=== PATIENT | female | born 1940 | race Caucasian/White ===

== ENCOUNTER 2017-12-22 11:40 | Inpatient (IN) ==
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
[2017-12-22 12:47] LABS: Basophils % 0.3 %; Eosinophils # 0.4 K/mcL (0.0-0.6); Eosinophils % 5.6 %; Hematocrit 36.2 % (35.3-44.9); Hemoglobin 12.2 g/dL (11.5-15.4); Immature Granulocytes % 0.9 % (0-4); Lymphocytes # 0.9 K/mcL (0.6-4.6); Lymphocytes % 11.2 %; Mean Corpuscular HGB Conc 33.7 g/dL (31.6-35.5); Mean Corpuscular Hemoglobin 30.5 pg (28.0-33.3); Mean Corpuscular Volume 90.5 fL (83.0-100.0); Mean Platelet Volume 8.7 fL (9.4-12.4); Monocytes # 0.5 K/mcL (0.0-1.3); Monocytes % 6.3 %; Neutrophils # 5.9 K/mcL (1.6-8.9); Nucleated Red Blood Cells 0.3 /100 WBC (0); Platelet Count 239 K/mcL (140-400); Red Cell Distribution Width 13.1 % (11.5-14.5); Segmented Neutrophils % 75.7 %
[2017-12-22 13:17] LABS: Alanine Aminotransferase 21 Units/L (7-52); Albumin 3.6 g/dL (3.5-5.7); Alkaline Phosphatase 46 Units/L (34-104); Aspartate Amino Transferase 26 Units/L (13-39); BUN/Creatinine Ratio 11 (6-26); Bilirubin,Direct 0.2 mg/dL (0.0-0.2); Bilirubin,Indirect 0.8 mg/dL (0.0-1.2); Blood Urea Nitrogen 9 mg/dL (8-23); Carbon Dioxide 22 mEq/L (23-29); Chloride 100 mEq/L (98-107); Globulin 3.5 g/dL (2.4-3.5); Glucose 127 mg/dL (70-105); Osmolality,Calculated 276 (280-300); Potassium 3.3 mEq/L (3.5-5.1); Sodium 133 mEq/L (136-145); Total Protein 7.1 g/dL (6.4-8.9); Troponin I < 0.03 ng/mL (< 0.04); eGFR For African Americans > 60 (> 60); eGFR For Non-African Americans > 60 (> 60)
[2017-12-22 13:30] LABS: Thyroid Stimulating Hormone 2.969 mcIU/mL (0.340-5.600)
[2017-12-22] MEDS ORDERED: Ipratropium/Albuterol Neb 3 ML IH ONE (15:46)
[2017-12-22] MEDS ORDERED: Ketorolac 15 MG/ML VIAL IVP ONE (17:53)
[2017-12-22] MEDS ORDERED: Furosemide 20 MG/2 ML VIAL IVP ONE (18:09)
[2017-12-22] MEDS ORDERED: Naloxone 0.4 MG/ML INJ IVP PRN (20:59)
--- NOTE | 2017-12-22 21:09 | Internal Med History&Physical ---
Date of Encounter: 12/22/17 Time of Encounter: 21:05 Assessment and Plan (1) Hospital-acquired pneumonia Current visit: Yes Status: Acute 77/F This is a very active and healthy female till August 2017. Since then she started gradually worsening in terms of sinus pressure, cough, congestive symptoms. Patient was evaluated by customer sales specialist/ENT. She was given multiple dosages of inhaled and oral steroids. She was complaining of tremors/agitation/restlessness after second week of her oral steroids. On examination, pertinent positives/negatives: Patient has a hoarseness of voice Likely essential tremors but goes mostly in favor of dystonic too Examination of oral cavity is benign. Unable to examine the back of the tounge for possible candidiasis Air entry bilaterally equal/polyphonic wheezes heard. Tremors restricted to upper part of the body then lower. Assessment: Possibly steroid induced tremors/agitation. Neurology opinion will be beneficial. Need ENT evaluation for hoarseness of voice. At this point I will not continue antibiotics he will though it was mentioned to him that edema on CTA. WBC normal ( in spite of steroids intake), no fever, no hypotension (Patient already received vancomycin/Zosyn in the emergency room) If needed team can start antibiotics tomorrow. Plan: Will admit as inpatient. Neurology/ENT opinion tomorrow if team agrees. I have examined this patient [id number] Patient's daughter is at bedside. Plan of care explained to the family. Verbalized understanding. (2) Hypertension Current visit: Yes Status: Acute Patient's blood pressure is within acceptable range. We will resume home medication. We will closely monitor blood pressure Qualifiers: Hypertension type: essential hypertension Qualified Code(s): I10 - Essential (primary) hypertension (3) Hypercholesterolemia Current visit: Yes Status: Acute We will get lipid panel tomorrow. Will continue home medication. (4) DVT prophylaxis Current visit: Yes Status: Acute SCD Medical decision making: This patient has a moderate to severe risk of worsening in spite of being on appropriate medication due to the underlying chronic comorbid conditions. Internal Medicine - H&P: HPI Chief complaint: Shortness of breath and Tremors. Admitted From: Emergency Dept Plans for Post Hospital Care: Home History of present illness: 77/F PCP: Jessica Stearns test specialist: Dr. Young ENT: Dr Mccarty from [place] ( Has appointment for laryngoscopy on 01/04/2018) Brief HPI: HTN, Hyperlipidemia, Previous Subdural hematoma, HPI: Patient was healthy and up to date with her health care maintenance the August 2017. In August 2017, she started with congestive symptoms, occasional headaches, and sinus related issues. She was referred to allergy and general road production manager by her PCP. She was started on steroid preparations which did not help her in terms of relieving her symptoms. She was referred to ENT specialist where she received tapering dosage of steroid. She could not tolerate this tapering doses of steroids more than 2 weeks and reason for intolerance was tremors, anxiety, agitation and restlessness. Patient was evaluated again by primary care doctor and suggested discontinuing the medication. In last 48 hours patient has clinically deteriorated in terms of worsening headache, tremors, agitation and more and more restlessness. Patient was evaluated by primary care physician this morning and recommended evaluation by emergency department for further management/investigations. Workup in the emergency department: Patient was evaluated in the emergency department. Basic labs were drawn. There is no leukocytosis. Mild hypokalemia was observed. CT head: Negative for any acute process. CTA chest: Suggestive of possibility of a interstitial pneumonia. Patient was started on vancomycin/Zosyn. Reason for admission: Hospital-acquired pneumonia (low probability) Family history: Noncontributory Past Med Surg Social Fam HX - Past Medical History Medical history: asthma, GERD, hyperlipidemia, hypertension Psychiatric history: anxiety, depression - Past Surgical History Surgical History: hysterectomy, sinus surgery - Social History Smoking Status: Never smoker Smokeless Tobacco Status: No Alcohol use: none Drug use: none - Family History Mother Living Status: Hx Family Cardiac Disorders: Yes Father Living Status: Hx Family Cardiac Disorders: Yes Internal Medicine - H&P: Meds Albuterol Sulfate [Albuterol Inhaler] 2 puff IH Q4H PRN 03/21/16 [History] Atorvastatin [Lipitor] 40 mg PO HS 03/21/16 [History] Calcium Carbonate [Calcium] 600 mg PO BID 03/21/16 [History] Gluc Sidhu/Chondro Sidhu A/Vit C/Mn [Glucosamine Chondroitin Tab] 1 each PO DAILY [History] Multivitamin [One Daily Essential] 1 each PO DAILY 03/21/16 [History] Omeprazole [PriLOSEC] 20 mg PO DAILY 03/21/16 [History] Sertraline [Zoloft] 50 mg PO DAILY 03/21/16 [History] Spironolactone [Aldactone] 25 mg PO QAM 03/21/16 [History] amLODIPine [Norvasc] 5 mg PO QPM 03/21/16 [History] Fluticasone Propionate Nasal [Flonase] 50 mcg NS BID 12/22/17 [History] Fluticasone Propionate [Flovent Hfa] 1 puff IH BID PRN 12/22/17 [History] Fluticasone/Salmeterol [Advair Hfa 115-21 Mcg Inhaler] 2 puff IH BID 12/22/17 [ History] Montelukast [Singulair] 10 mg PO DAILY 12/22/17 [History] Mupirocin Calcium [Bactroban Nasal] 1 appl TP BID PRN 12/22/17 [History] clonazePAM [Klonopin] 0.25 - 0.5 mg PO BID PRN 12/22/17 [History] 3 Allergy/AdvReac Type Severity Reaction Status Date / Time ciprofloxacin [From Cipro] Allergy Rash Verified 12/22/17 11:48 codeine Allergy Rash Verified 12/22/17 11:48 doxycycline Allergy Rash Verified 12/22/17 11:48 hydrocodone Allergy Hives Verified 12/22/17 11:48 Quinolones Allergy Rash Verified 12/22/17 11:48 Tetracycline Allergy Rash Verified 12/22/17 11:48 conjugated estrogens Allergy Hives Uncoded 03/21/16 18:22 All Systems PM: A 10-system review of systems was performed and is negative for pertinent findings except as documented above in the HPI. - Constitutional Constitutional: no chills, no fever(s), no night sweats - EENT Eyes: no change in vision, no discharge, no pain, no photophobia Ears: no ear discharge, no ear pain, no tinnitus Nose, mouth and throat: no dysphagia, no nasal discharge, no neck pain, no sore throat - Cardiovascular Cardiovascular ROS IM: no chest pain, no diaphoresis, no dyspnea, no lightheadedness, no palpitations, no syncope - Respiratory Respiratory: cough, dyspnea, wheezing, no excessive phlegm production - Gastrointestinal Gastrointestinal: no abdominal pain, no diarrhea, no hematemesis, no hematochezia, no melena, no nausea, no vomiting - Genitourinary Genitourinary: no change in urinary stream, no dysuria, no flank pain, no hematuria - Musculoskeletal Musculoskeletal ROS IM: no numbness, no tingling - Integumentary Integumentary IM: no rash, no unusual bruising - Neurological Neurological ROS: no confusion, no convulsions, no focal weakness, no numbness, no tingling, no tremor(s) - Hematologic/Lymphatic Hematologic/Lymphatic: no easy bruising - Constitutional Vitals: Temp Pulse Resp BP Pulse Ox 97.8 F 97 18 150/97 91 12/22/17 11:44 12/22/17 18:30 12/22/17 18:30 12/22/17 18:30 12/22/17 18:30 General appearance: Present: A&O X 3, pleasant, no acute distress, answers questions appropriately - Head Head exam: Present: atraumatic, normocephalic - Eye Eye exam: Present: PERRL, conjuntiva pink, sclera anicteric Pupils: Present: PERRL - Neck Neck exam general surgery: Present: supple, trachea midline. Absent: lymphadenopathy - Respiratory Respiratory exam: Present: accessory muscle use, CTAB, wheezes. Absent: rales, rhonchi - Cardiovascular Cardiovascular exam: Present: RRR, +S1, +S2. Absent: diastolic murmur, gallop, rubs, systolic murmur - GI/Abdominal GI/Abdominal exam: Present: normal bowel sounds, soft, no peritoneal signs. Absent: distended, tenderness - Extremities Exam Extremities exam: Present: warm, radial pulses palpable and symmetrical. Absent : calf tenderness, cyanotic, pedal edema - Neurological Exam Neurological exam: Present: CN II-XII intact, oriented X3, no focal deficits. Absent: pronater drift, facial droop, speech deficit Additional comments: Patient is very anxious, she has a ongoing tremors. These are not intentional tremors. These are more likely essential tremor - Skin Skin exam: Present: dry, intact Internal Med - H&P Results - Labs CBC & Chem 7: 12/22/17 12:05 12/22/17 12:05
--- NOTE | 2017-12-22 21:20 | Electrocardiograph Report ---
[facility] Test Date: 2017-12-22 Pat Name: Lewis Bonner Department: 103 Room: 3B46 Gender: F Vascular Technologist Sonographer: BRANDIE : 1940 Requested By: Jamal Arguelles Order Number: [id number] Reading MD: Joseph Brown DO Measurements Intervals [place] Rate: 107 P: 73 TX: 154 QRS: 46 QRSD: 91 T: 44 QT: 333 QTc: 396 Interpretive Statements SINUS TACHYCARDIA POSSIBLE RIGHT ATRIAL ENLARGEMENT [0.25mV P WAVE] POSSIBLE LEFT ATRIAL ENLARGEMENT [-0.1mV P WAVE IN V1/V2] ABNORMAL RHYTHM ECG Electronically Signed On 12-22-2017 21:18:53 EST by Joseph Brown DO
[2017-12-22] MEDS: Acetaminophen 325 MG TABLET PO PRN (22:00)
[2017-12-23 05:05] LABS: Basophils % 0.1 %; Eosinophils # 0.6 K/mcL (0.0-0.6); Eosinophils % 8.4 %; Hemoglobin 11.2 g/dL (11.5-15.4); Immature Granulocytes % 0.4 % (0-4); Lymphocytes # 0.8 K/mcL (0.6-4.6); Lymphocytes % 12.4 %; Mean Corpuscular HGB Conc 33.9 g/dL (31.6-35.5); Mean Corpuscular Hemoglobin 30.6 pg (28.0-33.3); Mean Corpuscular Volume 90.2 fL (83.0-100.0); Mean Platelet Volume 8.8 fL (9.4-12.4); Monocytes # 0.4 K/mcL (0.0-1.3); Monocytes % 6.4 %; Neutrophils # 4.8 K/mcL (1.6-8.9); Platelet Count 248 K/mcL (140-400); Red Blood Count 3.66 M/mcL (3.82-4.97); Red Cell Distribution Width 13.2 % (11.5-14.5); Segmented Neutrophils % 72.3 %
[2017-12-23 05:22] LABS: Alanine Aminotransferase 19 Units/L (7-52); Albumin 3.3 g/dL (3.5-5.7); Alkaline Phosphatase 42 Units/L (34-104); Aspartate Amino Transferase 25 Units/L (13-39); BUN/Creatinine Ratio 13 (6-26); Bilirubin,Total 0.7 mg/dL (0.3-1.0); Blood Urea Nitrogen 11 mg/dL (8-23); Calcium 8.8 mg/dL (8.6-10.3); Carbon Dioxide 23 mEq/L (23-29); Chloride 101 mEq/L (98-107); Chol/HDL Ratio 3.8 (0-4.9); Cholesterol 156 mg/dL (< 200); Globulin 3.2 g/dL (2.4-3.5); Glucose 106 mg/dL (70-105); HDL Cholesterol 41 mg/dL (40-59); LDL Cholesterol,Calculated 95 mg/dL (0-99); Magnesium 1.7 mg/dL (1.6-2.6); Osmolality,Calculated 276 (280-300); Phosphorous 3.7 mg/dL (2.7-4.5); Potassium 3.9 mEq/L (3.5-5.1); Sodium 133 mEq/L (136-145); Total Protein 6.5 g/dL (6.4-8.9); Triglycerides 98 mg/dL (< 150); eGFR For African Americans > 60 (> 60); eGFR For Non-African Americans > 60 (> 60)
[2017-12-23 05:29] LABS: INR 1.3; Prothrombin Time 13.6 Seconds (9.4-12.1)
[2017-12-23 05:31] LABS: Activated Partial Thrombo Time 29.4 Seconds (26.0-36.0)
[2017-12-23] MEDS: Acetaminophen 325 MG TABLET PO PRN ×3 (07:53→20:01)
[2017-12-23] MEDS: Spironolactone 25 MG TABLET PO SCH (07:53)
[2017-12-23] MEDS: Furosemide 20 MG/2 ML VIAL IVP SCH ×2 (13:02→17:10)
[2017-12-23] MEDS: amLODIPine 5 MG TABLET PO SCH (17:11)
[2017-12-23] MEDS ORDERED: Piperacillin/Tazobactam 3.375 GM in 0.9 % Sodium Chloride Mini Bag 100 ML IVPB ONE (18:45)
--- NOTE | 2017-12-23 18:46 | Internal Med Progress Note ---
Date of Encounter: 12/23/17 Time of Encounter: 11:40 - Assessment and plan (1) DVT prophylaxis Current Visit: Yes Status: Acute Assessment and plan: Lovenox subcutaneous, up to bedside chair twice daily. (2) Hospital-acquired pneumonia Current Visit: Yes Status: Acute Assessment and plan: Unclear that this is hospital-acquired pneumonia since patient has not been hospitalized. We will still continue to treat with vancomycin and Zosyn, and will begin to de- escalate tomorrow Chest CT is actually more concerning for pulmonary edema, we will treat with Lasix and BiPAP at night. Chest X-Ray 12/22/17 12:25 IMPRESSION: 1. Pulmonary vascular congestion without overt edema. 2. Subtle nodular opacity in the right upper lung which may be related to overlapping structures and/or degenerative changes of the 1st costochondral junction. This is not seen on the recent CT from 11/23/2017 and could also reflect an infectious or inflammatory process. Recommend follow-up to ensure resolution, however if this persists further evaluation with CT may be warranted. 3. Probable trace right pleural effusion. D/ / 12/22/2017 12:51:40 Marjan Zuniga MD / kedar Interpreting Provider: Marjan Zuniga MD Chest CTA 12/22/17 14:34 IMPRESSION: 1. Findings are most compatible with pulmonary edema. Trace bilateral pleural effusions. Atypical infection could have similar appearance but this is felt to be less likely. 2. No evidence of pulmonary emboli. 3. Moderate hiatal hernia with nonspecific thickening of the herniated stomach. 4. Partially imaged dilated extrahepatic bile duct. D/ / 12/22/2017 15:54:25 Bill Zuniga MD / shelly Interpreting Provider: Bill Zuniga MD (3) Hypercholesterolemia Current Visit: Yes Status: Chronic Assessment and plan: Chronic. Continue home medications. (4) Hypertension Current Visit: Yes Status: Chronic Assessment and plan: Chronic. Well controlled. Continue home medications. Qualifiers: Hypertension type: essential hypertension Qualified Code(s): I10 - Essential (primary) hypertension (5) Pulmonary edema Current Visit: Yes Status: Acute Assessment and plan: Acute pulmonary edema. Patient denies any knowledge of prior episode of this. We will start with 20 mg of Lasix IV twice a day and monitor labs and patient condition. BiPAP at night. Continue telemetry Continue oxygen as needed to maintain sats greater than 92%. Qualifiers: Chronicity: acute Qualified Code(s): J81.0 - Acute pulmonary edema - Time Spent With Patient less than 15 minutes - Subjective Interval history: Patient was seen and assessed at bedside at 11:40 AM, daughters at bedside. They are exceptionally pleasant people. All questions answered to the best of my ability. Patient denies headache or blurred vision, no neck pain. She denies chest pain. She states at times she feels short of breath, does not appear to be in respiratory distress. She denies any abdominal pain, nausea, vomiting, diarrhea. - Constitutional Vitals: Temp Pulse Resp BP Pulse Ox 98.2 F 86 16 119/71 90 12/23/17 18:41 12/23/17 18:41 12/23/17 18:41 12/23/17 18:41 12/23/17 18:41 General appearance: Present: mild distress, A&O X 3, pleasant, no acute distress , answers questions appropriately - Head Head exam: Present: atraumatic, normal inspection, normocephalic - Eye Eye exam: Present: normal appearance, conjuntiva pink, sclera anicteric - Neck Neck exam general surgery: Present: supple, trachea midline. Absent: lymphadenopathy, tenderness - Respiratory Respiratory exam: Present: CTAB, rales, respiratory distress. Absent: accessory muscle use, rhonchi, wheezes - Cardiovascular Cardiovascular exam: Present: RRR, +S1, +S2. Absent: bradycardia, diastolic murmur, gallop, rubs, systolic murmur, tachycardia - GI/Abdominal GI/Abdominal exam: Present: normal bowel sounds, soft. Absent: distended, hepatomegaly, tenderness - Extremities Exam Extremities exam: Present: normal capillary refill, normal inspection, warm, radial pulses palpable and symmetrical. Absent: calf tenderness, cyanotic, pedal edema, tenderness - Neurological Exam Neurological exam: Present: alert, oriented X3, no focal deficits. Absent: facial droop, speech deficit - Skin Skin exam: Present: dry, intact, normal color, warm. Absent: rash Internal Medicine: Result - Labs CBC & Chem 7: 12/23/17 03:08 12/23/17 03:08 Labs: Short CBC 12/23/17 Range/Units 03:08 WBC 6.7 (4.3-11.1) K/mcL Hgb 11.2 L (11.5-15.4) g/dL Hct 33.0 L (35.3-44.9) % Plt Count 248 (140-400) K/mcL Neutrophils # 4.8 (1.6-8.9) K/mcL BMP 12/23/17 03:08 Sodium 133 L Potassium 3.9 Chloride 101 Carbon Dioxide 23 BUN 11 Creatinine 0.88 Glucose 106 H Calcium 8.8 Cardiac Enzymes 12/22/17 12/23/17 12/23/17 Range/Units 21:19 03:08 09:38 Troponin I < 0.03 < 0.03 < 0.03 (< 0.04) ng/mL Liver Function 12/23/17 Range/Units 03:08 Total Bilirubin 0.7 (0.3-1.0) mg/dL AST 25 (13-39) Units/L ALT 19 (7-52) Units/L Alkaline Phosphatase 42 (34-104) Units/L Albumin 3.3 L (3.5-5.7) g/dL - ABG Interpretation ABG results: PT/INR, D-dimer PT 13.6 Seconds (9.4-12.1) H 12/23/17 03:08 Consult Discharge Plan - Plan Referrals: Jessica Stearns CNP [Primary Care Provider] -
[2017-12-23 21:47] LABS: Adenovirus Not Detected (Not Detect); Bordetella Pertussis Not Detected (Not Detect); Chlamydophila pneumoniae Not Detected (Not Detect); Coronavirus 229E Not Detected (Not Detect); Coronavirus HKU1 Not Detected (Not Detect); Coronavirus NL63 Not Detected (Not Detect); Coronavirus OC43 Not Detected (Not Detect); Human Metapneumovirus Not Detected (Not Detect); Human Rhinovirus/Enterovirus Not Detected (Not Detect); Influenza A Subtype 2009 H1 Not Detected (Not Detect); Influenza A Untypeable Not Detected (Not Detect); Influenza B Not Detected (Not Detect); Mycoplasma pneumoniae Not Detected (Not Detect); Parainfluenza Virus 1 Not Detected (Not Detect); Parainfluenza Virus 2 Not Detected (Not Detect); Parainfluenza Virus 3 Not Detected (Not Detect); Parainfluenza Virus 4 Not Detected (Not Detect); Respiratory Syncytial Virus Not Detected (Not Detect)
[2017-12-24] MEDS: *HR* Enoxaparin 40 MG/0.4 ML SYRINGE SQ SCH (06:54)
[2017-12-24] MEDS: Spironolactone 25 MG TABLET PO SCH (07:55)
[2017-12-24] MEDS: Furosemide 20 MG/2 ML VIAL IVP SCH ×2 (07:55→17:25)
[2017-12-24] MEDS: Acetaminophen 325 MG TABLET PO PRN ×2 (08:00→18:34)
[2017-12-24 08:22] LABS: Basophils % 0.3 %; Eosinophils # 0.5 K/mcL (0.0-0.6); Eosinophils % 7.7 %; Hematocrit 36.5 % (35.3-44.9); Hemoglobin 12.3 g/dL (11.5-15.4); Immature Granulocytes % 0.9 % (0-4); Lymphocytes # 0.9 K/mcL (0.6-4.6); Lymphocytes % 13.2 %; Mean Corpuscular HGB Conc 33.7 g/dL (31.6-35.5); Mean Corpuscular Hemoglobin 30.3 pg (28.0-33.3); Mean Corpuscular Volume 89.9 fL (83.0-100.0); Mean Platelet Volume 8.5 fL (9.4-12.4); Monocytes # 0.5 K/mcL (0.0-1.3); Monocytes % 6.9 %; Neutrophils # 4.6 K/mcL (1.6-8.9); Platelet Count 294 K/mcL (140-400); Red Blood Count 4.06 M/mcL (3.82-4.97); Red Cell Distribution Width 13.1 % (11.5-14.5)
[2017-12-24 08:41] LABS: BUN/Creatinine Ratio 18 (6-26); Blood Urea Nitrogen 14 mg/dL (8-23); Calcium 8.9 mg/dL (8.6-10.3); Carbon Dioxide 26 mEq/L (23-29); Chloride 97 mEq/L (98-107); Glucose 104 mg/dL (70-105); Osmolality,Calculated 277 (280-300); Potassium 3.1 mEq/L (3.5-5.1); Sodium 133 mEq/L (136-145); eGFR For African Americans > 60 (> 60); eGFR For Non-African Americans > 60 (> 60)
[2017-12-24] MEDS: Multivit/Ca/Min/Fe/FA 1 TAB TABLET PO SCH (11:24)
[2017-12-24] MEDS: Fluticasone Propionate Nasal 50 MCG/SPRAY BOTTLE NS SCH ×2 (11:29→21:56)
[2017-12-24] MEDS: Budesonide/Formoterol 80/4.5 MDI IH SCH ×2 (11:48→20:04)
--- NOTE | 2017-12-24 12:59 | Internal Med Progress Note ---
Date of Encounter: 12/24/17 Time of Encounter: 09:10 - Assessment and plan (1) DVT prophylaxis Current Visit: Yes Status: Acute Assessment and plan: Lovenox subcutaneous, up to bedside chair twice daily. Encourage ambulation. (2) Hospital-acquired pneumonia Current Visit: Yes Status: Acute Assessment and plan: Unclear that this is hospital-acquired pneumonia since patient has not been hospitalized. Pt has no leukocytosis and is afebrile and normotensive. Pt is not tachycardic. Chest CT is actually more concerning for pulmonary edema, we will treat with Lasix and BiPAP at night. IV abx have been stopped. Respiratory PCR is negative. Chest X-Ray 12/22/17 12:25 IMPRESSION: 1. Pulmonary vascular congestion without overt edema. 2. Subtle nodular opacity in the right upper lung which may be related to overlapping structures and/or degenerative changes of the 1st costochondral junction. This is not seen on the recent CT from 11/23/2017 and could also reflect an infectious or inflammatory process. Recommend follow-up to ensure resolution, however if this persists further evaluation with CT may be warranted. 3. Probable trace right pleural effusion. D/ / 12/22/2017 12:51:40 Marjan Zuniga MD / kedar Interpreting Provider: Marjan Zuniga MD Chest CTA 12/22/17 14:34 IMPRESSION: 1. Findings are most compatible with pulmonary edema. Trace bilateral pleural effusions. Atypical infection could have similar appearance but this is felt to be less likely. 2. No evidence of pulmonary emboli. 3. Moderate hiatal hernia with nonspecific thickening of the herniated stomach. 4. Partially imaged dilated extrahepatic bile duct. D/ / 12/22/2017 15:54:25 Bill Zuniga MD / shelly Interpreting Provider: Bill Zuniga MD (3) Hypercholesterolemia Current Visit: Yes Status: Chronic Assessment and plan: Chronic. Continue home dose of Lipitor. (4) Hypertension Current Visit: Yes Status: Chronic Assessment and plan: Chronic. Continue home medications: Norvasc, Lasix, Aldactone. Qualifiers: Hypertension type: essential hypertension Qualified Code(s): I10 - Essential (primary) hypertension (5) Pulmonary edema Current Visit: Yes Status: Acute Assessment and plan: Acute pulmonary edema. Patient denies any knowledge of prior episode of this. We will start with 20 mg of Lasix IV twice a day and monitor labs and patient condition. BiPAP at night. Continue telemetry Continue oxygen as needed to maintain sats greater than 92%. Pt up to ambulate with 02, sats hover around 90%, which is an improvement over arrival. Consult pulmonolgy if no improvement Monday a.m. (tomorrow) Qualifiers: Chronicity: acute Qualified Code(s): J81.0 - Acute pulmonary edema (6) Headache Current Visit: Yes Status: Acute Assessment and plan: Pt reports that she has had posterior neck, occiput pain that radiates into top of head since August. When I asked if she had been seen for the same, she states yes then no. Posterior neck and occiput tender to palpation, she reports blurred vision at times. Head CT negative for acute infarct. She denies n/v, but reports dizziness. I have ordered Flexeril 5mg po x 1 to assess for effectiveness. Due to pt's age , I have given partial dose and pt can have another 5mg po if no relief in 1 hour. Pt did receive 2nd dose. Daughter is insistent that pt have an MRI, will add if no relief from 2nd dose of Flexeril. Tylenol/Motrin for pain. Head CT 12/22/17 12:26 IMPRESSION: No acute intracranial abnormality. D/ / Alex Foster / Alex Foster Interpreting Provider: Alex Foster Qualifiers: Headache type: tension-type Headache chronicity pattern: acute headache Intractability: intractable Qualified Code(s): G44.201 - Tension-type headache , unspecified, intractable - Time Spent With Patient less than 15 minutes - Subjective Interval history: Patient was seen and assessed at bedside at 0910 AM, daughter is at bedside. Patient denies blurred vision, no neck pain. She denies chest pain. She states at times she feels short of breath, does not appear to be in respiratory distress. She denies any abdominal pain, nausea, vomiting, diarrhea. Today she reports that she has had a headache since August. Describes it as occipital with radiation to top of head, also reports posterior neck pain. Post neck and occiput are tender to palpation. Daughter, pt and I talked at length about classic tension headache symptoms and that we would try muscle relaxer first. Daughter is insistent on MRI, will wait on results after po Flexeril to order MRI. - Constitutional Vitals: Temp Pulse Resp BP Pulse Ox 98.3 F 88 16 114/71 94 12/24/17 11:17 12/24/17 11:17 12/24/17 11:48 12/24/17 11:17 12/24/17 11:48 General appearance: Present: cooperative, mild distress, A&O X 3, pleasant, no acute distress, answers questions appropriately - Head Head exam: Present: atraumatic, normocephalic. Absent: normal inspection - Expanded Head Exam Head exam expanded: Present: general tenderness - Eye Eye exam: Present: normal appearance, conjuntiva pink, sclera anicteric - Neck Neck exam general surgery: Present: normal inspection, supple, trachea midline. Absent: lymphadenopathy, tenderness - Respiratory Respiratory exam: Present: decreased breath sounds, CTAB, rales. Absent: accessory muscle use, chest wall tenderness, respiratory distress, rhonchi, wheezes - Cardiovascular Cardiovascular exam: Present: RRR, +S1, +S2. Absent: diastolic murmur, gallop, rubs, systolic murmur - GI/Abdominal GI/Abdominal exam: Present: normal bowel sounds, soft. Absent: distended, hepatomegaly, tenderness - Extremities Exam Extremities exam: Present: normal capillary refill, normal inspection, warm, radial pulses palpable and symmetrical. Absent: calf tenderness, cyanotic, pedal edema, tenderness - Neurological Exam Neurological exam: Present: alert, oriented X3, no focal deficits. Absent: facial droop, speech deficit - Skin Skin exam: Present: dry, intact, normal color, warm. Absent: rash Internal Medicine: Result - Labs CBC & Chem 7: 12/24/17 07:24 12/24/17 07:24 Labs: Short CBC 12/24/17 Range/Units 07:24 WBC 6.5 (4.3-11.1) K/mcL Hgb 12.3 (11.5-15.4) g/dL Hct 36.5 (35.3-44.9) % Plt Count 294 (140-400) K/mcL Neutrophils # 4.6 (1.6-8.9) K/mcL BMP 12/24/17 07:24 Sodium 133 L Potassium 3.1 L Chloride 97 L Carbon Dioxide 26 BUN 14 Creatinine 0.80 Glucose 104 Calcium 8.9 - ABG Interpretation ABG results: PT/INR, D-dimer PT 13.6 Seconds (9.4-12.1) H 12/23/17 03:08 Consult Discharge Plan - Plan Referrals: Daryn,Jessica Campos [employer] [Primary Care Provider] -
[2017-12-24] MEDS: amLODIPine 5 MG TABLET PO SCH (17:25)
[2017-12-24] MEDS: Acetaminophen/Butalbital/CaffeineTABLET PO PRN (21:52)
[2017-12-24] MEDS: Ipratropium/Albuterol Neb 3 ML IH PRN (22:39)
[2017-12-25] MEDS: *HR* Enoxaparin 40 MG/0.4 ML SYRINGE SQ SCH (05:47)
[2017-12-25 07:51] LABS: BUN/Creatinine Ratio 16 (6-26); Blood Urea Nitrogen 13 mg/dL (8-23); Calcium 9.3 mg/dL (8.6-10.3); Carbon Dioxide 28 mEq/L (23-29); Chloride 94 mEq/L (98-107); Glucose 104 mg/dL (70-105); Osmolality,Calculated 274 (280-300); Potassium 3.2 mEq/L (3.5-5.1); Sodium 132 mEq/L (136-145); eGFR For African Americans > 60 (> 60); eGFR For Non-African Americans > 60 (> 60)
[2017-12-25 08:06] LABS: Thyroid Stimulating Hormone 2.651 mcIU/mL (0.340-5.600)
[2017-12-25 08:13] LABS: Basophils % 0.5 %; Eosinophils # 0.6 K/mcL (0.0-0.6); Eosinophils % 8.6 %; Hematocrit 34.6 % (35.3-44.9); Hemoglobin 11.8 g/dL (11.5-15.4); Immature Granulocytes % 0.9 % (0-4); Lymphocytes % 14.4 %; Mean Corpuscular HGB Conc 34.1 g/dL (31.6-35.5); Mean Corpuscular Hemoglobin 30.6 pg (28.0-33.3); Mean Corpuscular Volume 89.9 fL (83.0-100.0); Mean Platelet Volume 8.5 fL (9.4-12.4); Monocytes # 0.6 K/mcL (0.0-1.3); Monocytes % 8.6 %; Neutrophils # 4.4 K/mcL (1.6-8.9); Platelet Count 349 K/mcL (140-400); Red Blood Count 3.85 M/mcL (3.82-4.97); Red Cell Distribution Width 12.9 % (11.5-14.5)
[2017-12-25] MEDS: Fluticasone Propionate Nasal 50 MCG/SPRAY BOTTLE NS SCH ×2 (08:53→20:40)
[2017-12-25] MEDS: Multivit/Ca/Min/Fe/FA 1 TAB TABLET PO SCH (08:54)
[2017-12-25] MEDS: Spironolactone 25 MG TABLET PO SCH (08:54)
[2017-12-25] MEDS: Furosemide 20 MG/2 ML VIAL IVP SCH ×2 (08:54→15:51)
[2017-12-25] MEDS: Acetaminophen/Butalbital/CaffeineTABLET PO PRN (10:31)
[2017-12-25] MEDS: Budesonide/Formoterol 80/4.5 MDI IH SCH ×2 (11:06→20:34)
[2017-12-25] MEDS: Ipratropium/Albuterol Neb 3 ML IH PRN ×2 (11:07→22:37)
[2017-12-25] MEDS: Acetaminophen 325 MG TABLET PO PRN (15:04)
[2017-12-25] MEDS ORDERED: traMADol 50 MG TABLET PO ONE (15:34)
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
[2017-12-25] MEDS: amLODIPine 5 MG TABLET PO SCH (17:44)
[2017-12-25] MEDS ORDERED: Azithromycin 500 MG in D5% in Water 250 ML IVPB ONE (18:22)
--- NOTE | 2017-12-25 18:49 | Pulmonology Consult Note ---
Date of Encounter: 12/25/17 Time of Encounter: 16:00 Assessment and Plan (1) Acute respiratory failure with hypoxia Current Visit: Yes Status: Acute Patient presenting with shortness of breadth after a 2 week course of steroids most likely due to worsening of acute on chronic diastolic heart failure secondary to long standing hypertensive heart disease agree with diuresis to ascertain Exercise O2 requirement on discharge might need O2 supplementation for 6-8 weeks and then reevaluate as outpatient will need repeat CT CHEST W/O contrast in 6-8 weeks . (2) CHF (congestive heart failure) Current Visit: Yes Status: Acute Patient last ECHO showed diastolic dysfunction in the setting of steroids patient started to eat and drink a lot during the steroid this has tipped her into Acute on Chronic diastolic heart failure will continue with diuresis will need outpatient Cardiology follow up for mangement of diastolic heart failure Qualifiers: Heart failure type: diastolic Heart failure chronicity: acute on chronic Qualified Code(s): I50.33 - Acute on chronic diastolic (congestive) heart failure (3) Atypical pneumonia Current Visit: Yes Status: Acute Patient presenting with hyponatremia atypical pneumonia with legionella is a possibility will send urine legionella antigen for certain serotypes if it negative will treat with Azithromycin for 7 days . Inflammatory pneumonias is low on the differential if there is persistent ground glass opacities after 6-8 weeks in the imaging will consider outpatient bronchoscopy . Will need outpatient pulmonology follow up in 6 weeks for evalaution with PFTS and possible PSG . Explained to Patient and Daughter answered all questions . History of Present Illness Consult date: 12/25/17 Requesting physician: Radha Villarreal Chief complaint: Worsening agitation and tremor with some shortness of breadth History of present illness: 77 year old female with no significant past medical history was recently started on steroids for possible allergic rhinosinusitis with symptoms of headache , nasal congestion and increased shortness of breadth patient was started on steroids developed agitation and tremors was stopped after 2 weeks of steroid taper patient says she had dry cough and worsening shortness of breadth , denied any cough with sputum production , denies any fever or chills or any other constitutional symptoms , denies any chest pain or palpitations , patient was exposed significant Wood smoke in earlier years of life and second hand smoking from her , patient has symptoms of sleep disordered breathing , denies any active neurological symptoms , denies any active GERD symptoms pulmonary was consulted for the development of Acute hypoxic respiratory failure . So far review of work up the last ECHO which was done 2017 showed diastolic dysfunction , CTA showed no PE bilateral ground glass opacities with interlobular septal thickening with some air trapping more consistent with interstitial edema with atypical pneumonia in differential . Past Med Surg Social Fam HX - Past Medical History Medical history: asthma, GERD, hyperlipidemia, hypertension Psychiatric history: anxiety, depression - Past Surgical History Surgical History: hysterectomy, sinus surgery - Social History Smoking Status: Never smoker Smokeless Tobacco Status: No Alcohol use: none Drug use: none - Family History Mother Living Status: Hx Family Cardiac Disorders: Yes Father Living Status: Hx Family Cardiac Disorders: Yes Medications and Allergies Albuterol Sulfate [Albuterol Inhaler] 2 puff IH Q4H PRN 03/21/16 [History] Atorvastatin [Lipitor] 40 mg PO HS 03/21/16 [History] Calcium Carbonate [Calcium] 600 mg PO BID 03/21/16 [History] Gluc Sidhu/Chondro Sidhu A/Vit C/Mn [Glucosamine Chondroitin Tab] 1 each PO DAILY [History] Multivitamin [One Daily Essential] 1 each PO DAILY 03/21/16 [History] Omeprazole [PriLOSEC] 20 mg PO DAILY 03/21/16 [History] Sertraline [Zoloft] 50 mg PO DAILY 03/21/16 [History] Spironolactone [Aldactone] 25 mg PO QAM 03/21/16 [History] amLODIPine [Norvasc] 5 mg PO QPM 03/21/16 [History] Fluticasone Propionate Nasal [Flonase] 50 mcg NS BID 12/22/17 [History] Fluticasone Propionate [Flovent Hfa] 1 puff IH BID PRN 12/22/17 [History] Fluticasone/Salmeterol [Advair Hfa 115-21 Mcg Inhaler] 2 puff IH BID 12/22/17 [ History] Montelukast [Singulair] 10 mg PO DAILY 12/22/17 [History] Mupirocin Calcium [Bactroban Nasal] 1 appl TP BID PRN 12/22/17 [History] clonazePAM [Klonopin] 0.25 - 0.5 mg PO BID PRN 12/22/17 [History] 3 Allergy/AdvReac Type Severity Reaction Status Date / Time ciprofloxacin [From Cipro] Allergy Rash Verified 12/22/17 11:48 codeine Allergy Rash Verified 12/22/17 11:48 doxycycline Allergy Rash Verified 12/22/17 11:48 hydrocodone Allergy Hives Verified 12/22/17 11:48 Quinolones Allergy Rash Verified 12/22/17 11:48 Tetracycline Allergy Rash Verified 12/22/17 11:48 conjugated estrogens Allergy Hives Uncoded 03/21/16 18:22 All Systems: The remainder of the systems were reviewed and are negative Physical Examination Vital Signs: Vital Signs, Last 4 Hours Temp Pulse Resp BP Pulse Ox 12/25/17 14:56 98.3 F 84 16 128/66 90 Auscultation: bilateral: wheezes Results - Laboratory Findings CBC and BMP: 12/25/17 07:09 12/25/17 07:09 PT/INR, D-dimer PT 13.6 Seconds (9.4-12.1) H 12/23/17 03:08 Abnormal lab findings: Abnormal lab results Hct 34.6 % (35.3-44.9) L 12/25/17 07:09 MPV 8.5 fL (9.4-12.4) L 12/25/17 07:09 Nucleated RBCs/100 WBC 0.3 /100 WBC (0) H 12/22/17 12:05 PT 13.6 Seconds (9.4-12.1) H 12/23/17 03:08 Sodium 132 mEq/L (136-145) L 12/25/17 07:09 Potassium 3.2 mEq/L (3.5-5.1) L 12/25/17 07:09 Chloride 94 mEq/L (98-107) L 12/25/17 07:09 Calculated Osmolality 274 (280-300) L 12/25/17 07:09 Albumin 3.3 g/dL (3.5-5.7) L 12/23/17 03:08 Albumin/Globulin Ratio 1.0 (1.1-2.2) L 12/23/17 03:08 - Clinical Findings Intake & Output: Intake & Output 12/25/17 12/25/17 12/25/17 07:59 15:59 23:59 Intake Total 240 / 240 Balance 240 / 240 Weight 71.622 kg Consult Discharge Plan - Plan Referrals: Jessica Stearns CNP [Primary Care Provider] -
[2017-12-26] MEDS: *HR* Enoxaparin 40 MG/0.4 ML SYRINGE SQ SCH (06:02)
[2017-12-26] MEDS: Budesonide/Formoterol 80/4.5 MDI IH SCH ×2 (08:10→21:02)
[2017-12-26] MEDS: Furosemide 20 MG/2 ML VIAL IVP SCH ×2 (09:27→18:02)
[2017-12-26] MEDS: Fluticasone Propionate Nasal 50 MCG/SPRAY BOTTLE NS SCH ×2 (09:27→20:10)
[2017-12-26] MEDS: Acetaminophen 325 MG TABLET PO PRN ×2 (09:31→18:01)
[2017-12-26] MEDS: Multivit/Ca/Min/Fe/FA 1 TAB TABLET PO SCH (09:32)
--- NOTE | 2017-12-26 13:40 | Pulmonology Progress Note ---
Date of Encounter: 12/26/17 Time of Encounter: 13:30 Assessment and Plan (1) Acute respiratory failure with hypoxia Current Visit: Yes Status: Acute To continue O2 supplementation to keep SPO2 around 92 % at rest and on exertion . Please ascertain exercise O2 requirements before discharge will arrange a 6 week outpatient follow up with [facility] (2) CHF (congestive heart failure) Current Visit: Yes Status: Acute Diuresis according to primary team patient is nearing euvolemia Qualifiers: Heart failure type: diastolic Heart failure chronicity: acute on chronic Qualified Code(s): I50.33 - Acute on chronic diastolic (congestive) heart failure (3) Atypical pneumonia Current Visit: Yes Status: Acute To complete the course of 7 days of Azithromycin will do follow up CT chest when we see her in outpatient pulmonology , patient is responding well to macrolides Subjective Principal diagnosis: Acute on Chronic diastolic heart failure Vs Atypical pneumonia Interval history: 77 year old female here coming with acute hypoxic respiratory failure diagnosed acute on chronic diastolic heart failure complicated by atypical pneumonia , patient says after she received the antibiotics she is feeling lot better her breathing is lot better has some cough with not much sputum production . Objective PUL Vital signs: Last Vital Signs Temp 99.1 F 12/26/17 12:17 Pulse 84 12/26/17 12:17 Resp 16 12/26/17 12:17 BP 111/68 12/26/17 12:17 Pulse Ox 94 12/26/17 12:17 Auscultation: bilateral: wheezes (very minimal ) Results - Laboratory Findings CBC and BMP: 12/25/17 07:09 12/26/17 14:42 PT/INR, D-dimer PT 13.6 Seconds (9.4-12.1) H 12/23/17 03:08 Abnormal lab findings: Abnormal lab results Hct 34.6 % (35.3-44.9) L 12/25/17 07:09 MPV 8.5 fL (9.4-12.4) L 12/25/17 07:09 Nucleated RBCs/100 WBC 0.3 /100 WBC (0) H 12/22/17 12:05 PT 13.6 Seconds (9.4-12.1) H 12/23/17 03:08 Sodium 132 mEq/L (136-145) L 12/25/17 07:09 Potassium 3.2 mEq/L (3.5-5.1) L 12/25/17 07:09 Chloride 94 mEq/L (98-107) L 12/25/17 07:09 Calculated Osmolality 274 (280-300) L 12/25/17 07:09 Albumin 3.3 g/dL (3.5-5.7) L 12/23/17 03:08 Albumin/Globulin Ratio 1.0 (1.1-2.2) L 12/23/17 03:08 - Clinical Findings Intake & Output: Intake & Output 12/25/17 12/26/17 12/26/17 23:59 07:59 15:59 Intake Total 1400 / 1400 660 / 660 Output Total 200 / 200 Balance 1400 / 1400 -200 / -200 660 / 660 Weight 70.896 kg Consult Discharge Plan - Plan Referrals: Jessica Stearns CNP [Primary Care Provider] - 01/01/18 9:00 am
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
[2017-12-26 15:24] LABS: BUN/Creatinine Ratio 17 (6-26); Blood Urea Nitrogen 15 mg/dL (8-23); Calcium 9.5 mg/dL (8.6-10.3); Carbon Dioxide 28 mEq/L (23-29); Chloride 91 mEq/L (98-107); Glucose 140 mg/dL (70-105); Osmolality,Calculated 271 (280-300); Potassium 3.2 mEq/L (3.5-5.1); Sodium 129 mEq/L (136-145); eGFR For African Americans > 60 (> 60); eGFR For Non-African Americans > 60 (> 60)
[2017-12-26] MEDS ORDERED: Azithromycin 250 MG in D5% in Water 250 ML IVPB SCH (16:00)
[2017-12-26] MEDS ORDERED: Potassium Chloride 40 MEQ, Lidocaine 1% 2 ML in D5% in Water 500 ML IVPB ONE (17:43)
[2017-12-26] MEDS ORDERED: Potassium Chloride Elixir 20 MEQ/15 ML UDC PO ONE (17:43)
[2017-12-26] MEDS: amLODIPine 5 MG TABLET PO SCH (18:01)
[2017-12-27 05:04] LABS: BUN/Creatinine Ratio 19 (6-26); Blood Urea Nitrogen 13 mg/dL (8-23); Calcium 9.5 mg/dL (8.6-10.3); Carbon Dioxide 26 mEq/L (23-29); Chloride 95 mEq/L (98-107); Glucose 118 mg/dL (70-105); Osmolality,Calculated 273 (280-300); Potassium 3.7 mEq/L (3.5-5.1); Sodium 131 mEq/L (136-145); eGFR For African Americans > 60 (> 60); eGFR For Non-African Americans > 60 (> 60)
[2017-12-27] MEDS: *HR* Enoxaparin 40 MG/0.4 ML SYRINGE SQ SCH (05:57)
[2017-12-27] MEDS: Budesonide/Formoterol 80/4.5 MDI IH SCH (08:28)
[2017-12-27] MEDS: Furosemide 20 MG/2 ML VIAL IVP SCH (08:35)
[2017-12-27] MEDS: Multivit/Ca/Min/Fe/FA 1 TAB TABLET PO SCH (08:35)
[2017-12-27] MEDS: Fluticasone Propionate Nasal 50 MCG/SPRAY BOTTLE NS SCH (08:35)
[2017-12-27] MEDS: Spironolactone 25 MG TABLET PO SCH (10:24)
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
[2017-12-27 16:13] VITALS: BP 130/70
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
[2017-12-28 09:20] LABS: Myeloperoxidase Ab 0 AU/mL (0-19); Serine Protease-3 Antibody 2 AU/mL (0-19)
== END 2017-12-27 17:30 | disposition home or self-care (01) | DRG 193 ==
LOC: EMEROO 11:40 → 3BNU 11:40
PROVIDERS: ADMIT Pediatrics; ATTEND Registered Nurse